=== PATIENT | male | born 1975 | race Caucasian/White ===

== ENCOUNTER → 2021-03-05 | Outpatient (CLI) | payer OTHER ==
[~2021-03-05] MED LIST: CYCL10TA2 PO; LISI1TAB20 PO; TRAZ50TA66 PO; VALA500T4 PO
[2021-03-05 10:14] LABS: BASOPHILS % (AUTO) 1 % (0-1); EOSINOPHILS % (AUTO) 6 % (1-7); LYMPHOCYTES % (AUTO) 34 % (22-44); MEAN CORPUSCULAR HEMOGLOBIN 34.1 pg (27.5-34.5); MEAN CORPUSCULAR HGB CONC 34.9 g/dL (33.2-36.2); MEAN PLATELET VOLUME 9.2 fL (7.4-10.4); MONOCYTES % (AUTO) 8 % (2-9); NEUTROPHILS % (AUTO) 51 % (42-75); PLATELET COUNT 202 x10^3/uL (130-400); RED BLOOD COUNT 4.82 x10^6/uL (4.38-5.82); RED CELL DISTRIBUTION WIDTH 13.2 % (9.4-14.8)
[2021-03-05 11:03] LABS: ALANINE AMINOTRANSFERASE 45 U/L (12-78); ALKALINE PHOSPHATASE 82 U/L (45-117); BILIRUBIN,TOTAL 0.7 mg/dL (0.2-1.0); CHLORIDE 109 mmol/L (98-107); HDL CHOLESTEROL (DIRECT) 29 mg/dL (40-60); TOTAL IRON BINDING CAPACITY 348 mcg/dL (250-450); TOTAL PROTEIN 7.7 g/dL (6.4-8.2)
[2021-03-05 11:07] LABS: ANION GAP 10 mmol/L (5-15); CALCIUM 9.2 mg/dL (8.5-10.1); CREATININE 0.92 mg/dL (0.7-1.3)
[2021-03-05 11:08] LABS: CHOL/HDL RATIO 6.8; CHOLESTEROL, TOTAL 198 mg/dL (140-239); HDL CHOL % 15 % (26-37); LDL CHOLESTEROL,CALCULATED 129 mg/dL (54-169); LDL/HDL RATIO 4.4 (0.5-3.0); TRIGLYCERIDES 201 mg/dL (50-200); VLDL CHOLESTEROL 40 mg/dL (0-25)
[2021-03-05 11:17] LABS: % IRON SATURATION 34 % (20-55); IRON LEVEL 119 mcg/dL (65-175); PREALBUMIN 27.7 mg/dL (20.0-40.0); TRANSFERRIN 275 mg/dL (200-360)
== END | disposition home or self-care (01) ==
LOC: STAR 08:52
PROVIDERS: ATTEND Thoracic Surgery (Cardiothoracic Vascular Surgery)
DX: Z01.818 Encounter for other preprocedural examination (principal); I21.19 ST elevation (STEMI) myocardial infarction involving other coronary artery of inferior wall; Z20.822 Contact with and (suspected) exposure to COVID-19
CPT/HCPCS: 36415; 71046; 80053; 80061; 82306; 82607; 82728; 82746; 83540; 83550; 83970; 84134; 84425; 84466; 85025; 93005; U0003; U0005

== ENCOUNTER 2021-03-11 08:54 | Inpatient (IN) | payer OTHER ==
[~2021-03-11] VITALS: Ht 186.7 cm; Wt 125.8 kg
[~2021-03-11 08:54] MED LIST changes: +BUPIVACAINE/PF 0.5% ONE; +EPINEPHRINE 1 MG/ML, 1ML ONE
[2021-03-11] MEDS ORDERED: CHLORHEXIDINE 15 ML UDC ONE (11:22)
[2021-03-11] MEDS ORDERED: LACTATED RINGERS 1,000 ML IV SCH (11:30)
[2021-03-11] MEDS ORDERED: CHLORHEXIDINE 15 ML UDC PO ONE (11:30)
[2021-03-11] MEDS ORDERED: MIDAZOLAM 1 MG/ML, 2ML ONE (12:01)
[2021-03-11] MEDS ORDERED: FENTANYL PF 250 MCG/5ML ONE (12:01)
[2021-03-11] MEDS ORDERED: PROPOFOL 10 MG/ML, 20ML ONE (12:02)
[2021-03-11] MEDS ORDERED: LIDOCAINE-MPF 2% ,5ML ONE (12:03)
[2021-03-11] MEDS ORDERED: ROCURONIUM 10MG/ML,5ML ONE ×2 (12:03→12:58)
[2021-03-11] MEDS ORDERED: CEFAZOLIN 1,000 MG ONE ×2 (12:04)
[2021-03-11] MEDS ORDERED: ONDANSETRON 2MG/ML, 2ML ONE ×2 (12:05→13:41)
[2021-03-11] MEDS ORDERED: DIAZEPAM 5 MG/ML, 2ML IVPush PRN (12:30)
[2021-03-11] MEDS ORDERED: LABETALOL 5MG/ML, 20ML IV PRN (12:30)
[2021-03-11] MEDS ORDERED: OXYcodone 5 MG/5 ML ORAL.SOL UDC PO PRN (12:30)
[2021-03-11] MEDS ORDERED: ONDANSETRON 2MG/ML, 2ML IVPush PRN ×2 (12:30→14:00)
[2021-03-11] MEDS ORDERED: MEPERIDINE/PF 25MG/0.5ML IVPush PRN (12:30)
[2021-03-11] MEDS ORDERED: HYDROmorphone 1 MG/ML, 1ML INJ IVPush PRN (12:30)
[2021-03-11] MEDS ORDERED: ESMOLOL 100 MG/10 ML ONE (12:37)
[2021-03-11] MEDS ORDERED: SUGAMMADEX 200 MG/2 ML IVPush ONE (12:37)
[2021-03-11] MEDS ORDERED: DEXAMETHASONE 4 MG/ML, 5ML ONE (12:49)
[2021-03-11] MEDS ORDERED: BUPIVACAINE/PF-EPI 0.5% 1:200K INFIL ONE (12:53)
[2021-03-11] MEDS ORDERED: FENTANYL PF 100 MCG/2ML ONE (13:41)
[2021-03-11] MEDS ORDERED: PHENOL THROAT SPRAY BOTTLE MM PRN (14:00)
[2021-03-11] MEDS ORDERED: LORazepam 2 MG/ML, 1ML IV PRN (14:00)
[2021-03-11] MEDS ORDERED: hydrALAzine 20 MG/ML, 1ML IVPush PRN (14:00)
[2021-03-11] MEDS: LACTATED RINGERS 1,000 ML IV SCH ×2 (14:00→20:20)
[2021-03-11] MEDS ORDERED: METHOCARBAMOL 1,000 MG in DEXTROSE 5% 100 ML IV ONE (14:00)
[2021-03-11] MEDS ORDERED: DIPHENHYDRAMINE 50 MG/ML, 1ML IV PRN (14:00)
[2021-03-11] MEDS ORDERED: ENALAPRILAT 1.25 MG/ML, 2ML IV PRN (14:00)
[2021-03-11] MEDS ORDERED: PROMETHAZINE 25 MG/ML, 1ML ONE (14:01)
[2021-03-11] MEDS: FENTANYL PF 100 MCG/2ML IV PRN ×3 (14:25→14:45)
[2021-03-11] MEDS ORDERED: PROMETHAZINE 25 MG/ML, 1ML IVPush PRN (14:30)
[2021-03-11] MEDS ORDERED: hydrALAzine 20 MG/ML, 1ML ONE (15:08)
[2021-03-11] MEDS: hydrALAzine 20 MG/ML, 1ML IV PRN ×2 (15:10→15:23)
[2021-03-11] MEDS ORDERED: HYDROmorphone 1 MG/ML, 1ML INJ ONE (15:16)
[2021-03-11] MEDS ORDERED: KETOROLAC 30 MG/1 ML ONE (16:21)
[2021-03-11] MEDS: morphine SULFATE 10 MG/ML, 1ML IVPush PRN ×6 (16:25→20:32)
[2021-03-11] MEDS: PROMETHAZINE 25 MG/ML, 1ML IM PRN (16:26)
[2021-03-11 18:50] VITALS: BP 138/88
[2021-03-11] MEDS ORDERED: KETOROLAC 30 MG/1 ML IVPush PRN (20:00)
[2021-03-11] MEDS: FAMOTIDINE 20 MG/2 ML IVPush SCH (21:03)
[2021-03-12 00:01] VITALS: BP 126/87
[2021-03-12] MEDS: HYDROcodone/APAP 7.5-325MG/15ML UDC PO PRN ×2 (02:27→09:11)
[2021-03-12] MEDS: PROMETHAZINE 25 MG/ML, 1ML IM PRN (02:29)
[2021-03-12] MEDS: LACTATED RINGERS 1,000 ML IV SCH ×2 (02:33→11:02)
[2021-03-12 03:58] VITALS: BP 123/86
[2021-03-12 05:10] LABS: BASOPHILS % (AUTO) 0 % (0-1); EOSINOPHILS % (AUTO) 0 % (1-7); LYMPHOCYTES % (AUTO) 10 % (22-44); MEAN CORPUSCULAR HEMOGLOBIN 33.7 pg (27.5-34.5); MEAN CORPUSCULAR HGB CONC 34.3 g/dL (33.2-36.2); MEAN PLATELET VOLUME 9.6 fL (7.4-10.4); MONOCYTES % (AUTO) 6 % (2-9); NEUTROPHILS % (AUTO) 84 % (42-75); PLATELET COUNT 228 x10^3/uL (130-400); RED BLOOD COUNT 4.63 x10^6/uL (4.38-5.82); RED CELL DISTRIBUTION WIDTH 13.3 % (9.4-14.8)
[2021-03-12 05:25] LABS: ALBUMIN 3.7 g/dL (3.4-5.0); ANION GAP 8 mmol/L (5-15); CALCIUM 8.8 mg/dL (8.5-10.1); CHLORIDE 100 mmol/L (98-107)
[2021-03-12 05:28] LABS: CREATININE 0.91 mg/dL (0.7-1.3)
[2021-03-12 07:05] VITALS: BP 121/80
[2021-03-12] MEDS ORDERED: ENOXAPARIN 40 MG/0.4 ML SQ SCH (09:00)
[2021-03-12] MEDS ORDERED: HYDR15SO3 PO (09:06)
[2021-03-12] MEDS: FAMOTIDINE 20 MG/2 ML IVPush SCH (09:11)
[2021-03-12] MEDS ORDERED: TAMSULOSIN 0.4 MG CAP.ER.24H PO ONE (09:30)
[2021-03-12 11:34] VITALS: BP 128/79
== END 2021-03-12 12:45 | disposition home or self-care (01) | DRG 621 ==
LOC: ORIP 10:38 → 4NE 15:57 → DCLOUNGE 03-12 12:41
PROVIDERS: ADMIT Thoracic Surgery (Cardiothoracic Vascular Surgery); ATTEND Thoracic Surgery (Cardiothoracic Vascular Surgery)
PROC: 0DB64Z3 Excision of Stomach, Percutaneous Endoscopic Approach, Vertical (ICD-10-PCS; principal; 2021-03-11 12:30)
DX: E66.01 Morbid (severe) obesity due to excess calories (principal); I10 Essential (primary) hypertension; Z68.36 Body mass index [BMI] 36.0-36.9, adult; Z85.46 Personal history of malignant neoplasm of prostate
CPT/HCPCS: 36415; J3490; S0020; 80048; 82040; 85025; G0378; J0171; J0690; J1100; J1170; J1650; J2250; J2405; J2550; J2704; J3010; J0360; J1200; J2270; J2800; J7120